=== PATIENT | female | born 1995 | race Two or more races ===

== ENCOUNTER 2021-08-24 14:23 | Emergency (ER) | payer BC ==
[~2021-08-24] VITALS: Ht 162.6 cm; Wt 59.0 kg
== END 2021-08-24 16:11 | disposition home or self-care (01) ==
LOC: ER 14:23
DX: S62.623A Displaced fracture of middle phalanx of left middle finger, initial encounter for closed fracture (principal); W22.8XXA Striking against or struck by other objects, initial encounter; Y93.89 Activity, other specified; Y92.821 Forest as the place of occurrence of the external cause; Y99.8 Other external cause status